=== PATIENT | female | born 2005 | race Caucasian/White ===

== ENCOUNTER 2024-05-11 08:29 | Outpatient (CLI) | payer BC, SELFPAY ==
--- NOTE | ~2024-05-11 | XR_ITS ---
XR elbow LT 2V 05/11/2024 08:43 Indication: Follow-up left radial fracture Procedure: 2 views left elbow Comparison: 04/24/2024 Findings: Stable alignment of healing radial fracture at the junction of the radial head and neck. Sm all joint effusion. No foreign bodies. Impression: 1: Stable alignment of healing proximal radial fracture. Reviewed, dictated and finalized at location B. PMENT STERILIZER Impression: 1: Stable alignment of healing proximal radial fracture.
--- OUTSIDE RECORDS SUMMARY | 2024-05-11 08:40 | XMS_ITS ---
Author Organization [facility] [place] Address [address] [place] [address] Care Team Providers Care Cafeteria Aide Name Role Phone Unavailable Unavailable Unavailable Surgery Details Not on file Complications Check Surgery Details section. Procedure Estimated Blood Loss Check Surgery Details section. Procedure Findings Check Surgery Details section. Procedure Specimens Taken Check Surgery Details section.
--- OUTSIDE RECORDS SUMMARY | 2024-05-11 08:40 | XMS_ITS | CCD ---
Author Organization [facility] [place] [address] [place] [address] Care Team Providers Care Mobile Architect Name Role Phone Unavailable Primary Care Provider Unavailabl e Social History Tobacco Use Types Packs/Day Years Used Date Smoking Tobacco: Never Assessed Comments Unknown Sex and Gender Information Value Date Recorded Sex Assigned at Not on file Legal Sex Female 1:22 AM PST Gender Identity Not on file Sexual Orientation Not on file Plan of Treatment Not on file
--- OUTSIDE RECORDS SUMMARY | 2024-05-11 08:40 | XMS_ITS | Referral Summary ---
Author Organization [facility] [place] Address [address] [place] [address] Care Team Providers Care Rockboard Lather Name Role Phone Unavailable Primary Care Provider [...]
--- OUTSIDE RECORDS SUMMARY | 2024-05-11 08:40 | XMS_ITS | Patient Health Summary ---
Author Organization [facility] Address [address] [place] [address] Care Team Providers Care Lpta Name Role Phone Jaci Real MD Primary Care Provider [phone] Note from [facility],non-owned Affiliates and Associated Physician Practices is amultiple site organization consisting of ambulatory clinics and hospital sitesin [place], [place], [place] and [place]. This disclosure is being madepursuant to the Care Everywhere program and may not contain all information available regarding this patient. Last updated 17.[facility] Allergies No known active allergies* Wilson(Itching) -Low Criticality,Inactive Medications * Be aware that medications may not be up to date on this document. Alwaysverify current medications with the patient. * omeprazole (PriLOSEC) 20 MG capsule Take 1 (one) capsule by mouth daily before breakfast * norgestimate-ethinyl estradiol (Marisol) 0.25-35 MG-MCG tablet(Started 02/17/2024) Take 1 (one) tablet by mouth once daily 4 refills by 02/16/2025 Active Problems Problem Noted Date Diagnosed Date Macromastia 08/20/2023 Need for vaccination 10/11/2020 Immunizations * Human Papilloma Virus Ninevalent Vaccine(Given 01/30/2021, 10/11/2020, 07/17/2020) Social History Tobacco Use Types Packs/Day Years Used Date Smoking Tobacco: Never Passive Smoke Exposure: Never Smokeless Tobacco: Never Tobacco Cessation:Counseling Given: Not Answered Alcohol Use Standard Drinks/Week Comments No 0 (1 standard drink = 0.6 oz pur e alcohol) AUDIT-C Answer Date Recorded Q1: How often do you have a drink containing alcohol? Patient declined 08/13/2023 Q2: How many drinks containi ng alcohol do you have on a typical day when you are drinking? Patient does not drink Q3: How often do you have si x or more drinks on one occasion? Patient declined 08/13/2023 PHQ-2 Answer Date Recorded Patient Health Questionnaire-2 Score 0 02/17/2024 Sex and Gender Information Value Date Recorded Sex Assigned at Not on file Gender Identity Not on file Sexual Orientation Not on file Last Filed Vital Signs Vital Sign Reading Time Taken Comments Blood Pressure 124/80 02/17/2024 1:48 PM [employer] Pulse 89 08/16/2023 12:22 PM CDT Temperature 36.7 ??C (98.1 ??F) 08/16/2023 12:22 PM C DT Respiratory Rate 18 08/16/2023 12:22 PM CDT Oxygen Saturation 98% 08/16/2023 12:22 PM CDT Inhaled Oxygen Concentration 100% 08/13/2023 3 :56 PM CDT Weight 87.6 kg (193 lb 1.6 oz) 02/17/2024 1:48 P M [employer] Height 154.9 cm (5' 1 ) 02/17/2024 1:48 PM [employer] Body Mass Index 36.49 02/17/2024 1:48 PM [employer] Procedures * PATHOLOGY TISSUE EXAM (STL)(Performed 08/13/2023) Performed for Macromastia * ENDOTRACHEAL TUBE NOTE(Performed 08/13/2023) * [place] BREAST REDUCTION(Performed 08/13/2023) Performed for Macromastia * HCG URINE QUALITATIVE - POCT (IP) INTERFACED(Performed 08/13/2023) * HCG URINE QUAL POCT NOTIFICATION(Performed 08/13/2023) Performed for Pre-op testing * CBC W AUTO DIFFERENTIAL(Performed 08/01/2023) Performed for Pre-op exam * CT ABDOMEN PELVIS W CONTRAST(Performed 01/25/2021) Performed for Lower abdominal pain * US PELVIS W DOPPLER OVARIES(Performed 01/25/2021) Performed for Lower abdominal pain * XR ABD OBSTRUCTION SERIES 2VW(Performed 01/25/2021) Performed for Lower abdominal pain * LIPASE BLOOD(Performed 01/25/2021) * COMPREHENSIVE METABOLIC PANEL(Performed 01/25/2021) * CBC W AUTO DIFFERENTIAL(Performed 01/25/2021) * HCG URINE QUALITATIVE - POCT (IP) INTERFACED(Performed 01/25/2021) * URINALYSIS W/MICROSCOPIC NO CULTURE(Performed 01/25/2021) * CULTURE URINE(Performed 01/25/2021) * HCG URINE QUAL POCT NOTIFICATION(Performed 01/25/2021) * TESTOSTERONE FREE+TOTAL PANEL(Performed 07/17/2020) Performed for Irregular periods * ESTRADIOL(Performed 07/17/2020) Performed for Irregular periods * FSH(Performed 07/17/2020) Performed for Irregular periods * PROLACTIN(Performed 07/17/2020) Performed for Irregular periods * TSH REFLEX FREE T4(Performed 07/17/2020) Performed for Irregular periods * XR ANKLE LEFT 3VW OR MORE(Performed 07/31/2014) Performed for Injury, other and unspecified, knee, leg, ankle, and foot * XR TIBIA FIBULA LEFT 2VW(Performed 07/31/2014) Performed for Injury, other and unspecified, knee, leg, ankle, and foot Results * PATHOLOGY TISSUE EXAM (STL) (08/13/2023 12:21 PM CDT) Case Report Surgical Pathology Report ? Case: [id number] ? Authorizing Provider: ??Sandra Harman MD Collected: ? 08/13/2023 12:21 PM ? Ordering Location: ? [facility] ?Received: ?08/14/2023 08:34 AM ? [facility] - [facility] ? Pathologist: ? Cedric Ding MD ? Specimens: ?? A) - Breast Reduction, right breast reduction ? B) - Breast Reduction, left breast reduction ? 08/19/2023 10:38 AM [facility] Final Diagnosis A. Breast, right, reduction: - Benign skin and breast tissue in macromastia,922 g. B. Breast, left, reduction: - Benign skin and breast tissue in macromastia, 985 g. 08/19/2023 10:38 AM [facility] Clinical History Macromastia in a 17-year-old female 08/19/2023 10:38 AM [facility] Gross Description Two specimens are received in formalin for gross and microscopic examination labeled Irena Hamilton . Specimen A, additionally labeled ? right breast reduction contains multiple fragments of yellow fibrofatty breast tissue, some with white skin with an aggregate measurement of 17.3 x 11.5 x 10.3 cm and weighing 1120 g. The skin portion of the specimen measures 16.8 x 9.0 cm in aggregate. Serial sectioning reveals primarily yellow fibrofatty breast tissue without masses lesions., media sales representative sections are submitted in A1-A3. Specimen B, additionally labeled ? left breast reduction contains multiple fragments of yellow fibrofatty breast tissue, some with white skin attached with an aggregate measurement of 19.0 x 14.2 x 12.3 cm and weighing 1550 g. The skin portion of the specimen measures 19.6 x 11.5 cm in aggregate. Serial sectioning reveals yellow fibrofatty breast tissue without masses or lesions. Claims Investigator sections are submitted in B1-B3. 08/19/2023 10:38 AM [facility] Grossed By Juan Durham 08/05 10:38 AM [facility] Microscopic Description 6 H&E Sections of both specimens show similar histologic features: unremarkable breast tissue and hair-bearing skin overlying unremarkable mammary tissue. 08/19/2023 10:38 AM [facility] Pathologist Location at [facility] 08/19/2023 10:38 AM [facility] Disclaimer The performance characteristics of all immunohistochemical and indirect immunofluorescence stains (if any) cited in this report were determined by the Histopathology Laboratory of [facility] in compliance with Clinical Laboratory Improvement Amendments of 1988 (CLIA'88) regulations. Some of these tests rely on the use of analyte-specific reagents and are subject to specific labeling requirements by the U.S. Food and Drug Administration (FDA). Such tests were developed by the [facility] Laboratory of [facility] and have not been cleared or approved by the FDA. The FDA has determined that such clearance or approval is not necessary. These tests are used for clinical purposes and should not be regarded as investigational or for research. This case has been personally reviewed and interpreted by the attending (teaching) pathologist. 08/19/2023 10:38 AM [facility] Embedded Images 08/19/2023 10:38 AM [facility] Pathology/Cytology SPECIMEN FROM BREAST OBTAINED BY EXCISION / Unknown 08/13/2023 12:21 PM CDT 08/14/2023 8:34 AM CDT Comment:Pre-op diagnosis: Macromastia [N62] Miscellaneous samples (specimen) SPECIMEN FROM BREAST OBTAINED BY EXCISION / Unknown 08/13/2023 12:22 PM CDT 08/14/2023 8:34 AM CDT Comment:Pre-op diagnosis: Macromastia [N62] Sandra Harman MD LAB - PATHOLOGY /CYTOLOGY ORDERABLES [facility] [place] [address] * ETT LINE PERFORMABLE (08/13/2023 11:49 AM CDT) Narrative Chikis Hester APRN-CRNA - 08/13/2023 11:49 AM CDT Chikis Hester APRN-CRNA ? 08/13/2023 11:50 AM Endotracheal Tube Placement: ? Patient Location: OR. Intubation Event Date/Time: ??08/13/2023 11:41 AM Procedure: intubation (61113). Procedure Section: ?? Sedation: under general anesthesia. Indications for Airway Management: ??anesthesia Induction: standard IV Patient Position: ??sniffing Mask Ventilation: easy. Blade Type: Lyle Blade Size: 3 Laryngoscopy View: grade 1 (full cords) Tube: endotracheal tube Placement: oral Tube type: cuff - inflated Tube Size (MM): 6.5 Depth of Insertion (CM): 20 Measured From: teeth Cuff inflation pressure (CM H20): ??20 Cuff Inflated With: air Number of Attempts: 1. Placement Verified By: direct visualization, bilateral breath sounds and CO2 monitor Tube secured with: ??adhesive tape. Dentition unchanged? ??Yes Difficult Airway? ??No. Procedure Start Time: 08/13/2023 11:41 AM. Staff Section ? Anesthesia Provider: Kristin Coffey, Performed the procedure ? Provider #1: Kim Orozco MD. ? Provider #2: Giselle De Santiago APRN-CRNA. Kim Orozco MD GENERAL ANESTHESIA ORDERABLES * HCG URINE QUALITATIVE - POCT (IP) INTERFACED (08/13/2023 10:23 AM CDT) Only the most recent of2 resultswithin the time period is included. HCG Qual Urine Negative Negative 08/13/2023 4:48 PM CDT [facility] Urine URINE / Unknown 08/13/2023 1 0:23 AM CDT 08/13/2023 4:48 PM CDT Sandra Harman MD LAB - POINT OF CARE ORDERABLES Performing Organization Address [facility] Co de Phone Number [facility] [address] [place] [phone] * HCG URINE QUAL POCT NOTIFICATION (08/13/2023 9:58 AM CDT) Only the most recent of2 resultswithin the time period is included. Pathologist [facility] Comment Notification Label Only - See Separate Report 08/13/2023 11:02 AM CDT [facility] Urine URINE / Unknown 08/13/2023 9 :58 AM CDT 08/13/2023 9:58 AM CDT Sandra Harman MD LAB - URINALYSI S ORDERABLES Performing Organization Address [facility] de Phone Number [facility] [address] [place] [phone] * (ABNORMAL) CBC W DIFFERENTIAL (08/01/2023 3:23 PM CDT) Only the most recent of2 resultswithin the time period is included. WBC 11.6(H) 4.0 - 10.7 x10E9/L 08/01/2023 4:16 PM CDT [facility] RBC Count 4.70 3.90 - 5.20 x10E12/L 08/01/2023 4:16 PM T [facility] Hemoglobin 11.3(L) 11.9 - 15.8 g/dL 08/01/2023 4:16 PM T [facility] Hematocrit 36.8 34.8 - 46.1 % 08/01/2023 4:16 PM [facility] MCV 78.3(L) 80.0 - 98.0 fL 08/01/2023 4:16 PM [facility] MCH 24.0(L) 26.7 - 33.6 pg 08/01/2023 4:16 PM [facility] MCHC 30.7(L) 31.7 - 36.3 g/dL 08/01/2023 4:16 PM [facility] RDW-CV 16.9(H) 11.3 - 14.8 % 08/01/2023 4:16 PM [facility] Platelet Count 382 150 - 420 x10E9/L 08/01/2023 4:16 PM [facility] MPV 12.2(H) 7.8 - 11.4 fL 08/01/2023 4:16 PM [facility] Neutrophil % 69.0 41.0 - 74.0 % 08/01/2023 4:16 PM [facility] Lymphocyte % 23.9 17.0 - 47.0 % 08/01/2023 4:16 PM [facility] Monocyte % 4.6 3.0 - 11.0 % 08/01/2023 4:16 PM [facility] Eosinophil % 1.0 0.0 - 7.0 % 08/01/2023 4:16 PM [facility] Basophil % 0.7 0.0 - 1.6 % 08/01/2023 4:16 PM [facility] Immature Granulocytes % 0.8 0.0 - 1.0 % 08/01/2023 4:16 PM [facility] Neutrophil Absolute 7.99(H) 1.60 - 7.50 x10E9/L 08/01/2023 4:16 PM [facility] Lymphocyte Absolute 2.76 1.00 - 4.40 x10E9/L 08/01/2023 4:16 PM [facility] Monocyte Absolute 0.53 0.15 - 1.00 x10E9/L 08/01/2023 4:16 PM [facility] Eosinophil Absolute 0.12 0.00 - 0.60 x10E9/L 08/01/2023 4:16 PM CDT [facility] Basophil Absolute 0.08 0.00 - 0.13 x10E9/L 08/01/2023 4:16 PM CDT [facility] Blood BLOOD SPECIMEN / Unknown Lab Venipuncture / Unknown 08/01/2023 3:23 PM CDT 08/01/2023 4:11 PM CDT Sandra Harman MD LAB - HEMATOLOG Y ORDERABLES [facility] [address] [place] [address], [facility] [phone] * CT ABDOMEN AND PELVIS WITH IV CONTRAST (01/25/2021 3:12 PM CDT) Anatomical Region Laterality Modality Abdomen, Pelvis Computed Tomogra phy 01/25/2021 3:26 PM CDT Impressions 01/25/2021 3:30 PM CDT No acute process in the abdomen or pelvis. Normal appendix. *Reading Radiologist: Kali Gibson on 01/25/2021 at 3:30 PM Narrative 01/25/2021 3:30 PM CDT INDICATION: Lower abdominal pain. Concern for appendicitis. COMPARISON: None available. TECHNIQUE: CT of the abdomen and pelvis with 95 mL of Isovue-300 intravenous contrast. Coronal and sagittal reformatted images were submitted. DOSE: CTDI: 20.18 mGy, DLP: 1064.17 mGy-cm The reported CTDIvol (mGy) and DLP (mGy-cm) values are generated from scan acquisition factors based on 32 cm (body) or 16 cm (head) phantoms and may underestimate or overestimate the actual patient dose based on patient size and other factors. FINDINGS: Chest: The lung bases are clear. Hepatobiliary: Normal liver size and attenuation. No gallbladder calculus, gallbladder wall thickening or biliary dilation. Pancreas: Normal without peripancreatic fluid collection. Spleen: Normal attenuation without mass. Adrenal glands: Normal in morphology without mass lesion. : Normal appearance of the kidneys with symmetric parenchymal enhancement. No bladder or deep pelvic soft tissue abnormality is seen. Left ovarian/adnexal cyst measuring up to 3.6 cm. GI: No obstruction or abnormal bowel wall thickening. Vascular: The aorta and inferior vena cava are normal. Other: No free air or abnormal fluid collection. Small amount of free fluid within the pelvis, likely reactive. Bones: The bones are normal. Procedure Note Kali Gibson, DO - 01/25/2021 INDICATION: Lower abdominal pain. Concern for appendicitis. COMPARISON: None available. TECHNIQUE: CT of the abdomen and pelvis with 95 mL of Isovue-300 intravenous contrast. Coronal and sagittal reformatted images were submitted. DOSE: CTDI: 20.18 mGy, DLP: 1064.17 mGy-cm The reported CTDIvol (mGy) and DLP (mGy-cm) values are generated from scan acquisition factors based on 32 cm (body) or 16 cm (head) phantoms and may underestimate or overestimate the actual patient dose based on patient size and other factors. FINDINGS: Chest: The lung bases are clear. Hepatobiliary: Normal liver size and attenuation. No gallbladder calculus, gallbladder wall thickening or biliary dilation. Pancreas: Normal without peripancreatic fluid collection. Spleen: Normal attenuation without mass. Adrenal glands: Normal in morphology without mass lesion. : Normal appearance of the kidneys with symmetric parenchymal enhancement. No bladder or deep pelvic soft tissue abnormality is seen. Left ovarian/adnexal cyst measuring up to 3.6 cm. GI: No obstruction or abnormal bowel wall thickening. Vascular: The aorta and inferior vena cava are normal. Other: No free air or abnormal fluid collection. Small amount of free fluid within the pelvis, likely reactive. Bones: The bones are normal. IMPRESSION No acute process in the abdomen or pelvis. Normal appendix. *Reading Radiologist: Kali Gibson on 01/25/2021 at 3:30 PM [address]inthia Tomlinson MD CT ORDERABLES * US PELVIS W DOPPLER OVARIES (01/25/2021 12:40 PM CDT) Anatomical Region Laterality Modality Pelvis Ultrasound 01/25/2021 1:03 PM CDT Impressions 01/25/2021 1:06 PM CDT 1. ??Normal pelvis ultrasound. 2. ??Normal spectral Doppler interrogation of the ovaries. *Reading Radiologist: Kali Gibson on 01/25/2021 at 1:06 PM Narrative 01/25/2021 1:06 PM CDT INDICATION: Lower abdominal pain for several days. COMPARISON: None available. TECHNIQUE: Transabdominal ultrasound of the pelvis with complete color and spectral Doppler evaluation of the ovaries. FINDINGS: Uterus: 6.1 x 2.2 x 3.8 cm Endometrium: 5 mm. The uterus has normal appearance for patient age. The myometrium is homogenous and normal. There is no pathological endometrial thickening or abnormal fluid. Right Ovary: 3.4 x 1.8 x 1.3 cm. Volume 4.2 mL The right ovary is normal in appearance. Left Ovary: 3.2 x 2.4 x 2.4 cm. Volume 9.6 mL The left ovary is normal in appearance. Doppler: Spectral Doppler waveforms demonstrate arterial and venous flow to both ovaries.. ??Normal color flow is demonstrated to both ovaries. Other: There is no abnormal free fluid or adnexal mass. Procedure Note Kali Gibson, DO - 01/25/2021 INDICATION: Lower abdominal pain for several days. COMPARISON: None available. TECHNIQUE: Transabdominal ultrasound of the pelvis with complete color and spectral Doppler evaluation of the ovaries. FINDINGS: Uterus: 6.1 x 2.2 x 3.8 cm Endometrium: 5 mm. The uterus has normal appearance for patient age. The myometrium is homogenous and normal. There is no pathological endometrial thickening or abnormal fluid. Right Ovary: 3.4 x 1.8 x 1.3 cm. Volume 4.2 mL The right ovary is normal in appearance. Left Ovary: 3.2 x 2.4 x 2.4 cm. Volume 9.6 mL The left ovary is normal in appearance. Doppler: Spectral Doppler waveforms demonstrate arterial and venous flow to both ovaries.. Normal color flow is demonstrated to both ovaries. Other: There is no abnormal free fluid or adnexal mass. IMPRESSION 1. Normal pelvis ultrasound. 2. Normal spectral Doppler interrogation of the ovaries. *Reading Radiologist: Kali Gibson on 01/25/2021 at 1:06 PM Cinthia Tomlinson MD US ORDERABLES * XR ABD OBSTRUCTION SERIES 2VW (01/25/2021 11:04 AM CDT) Anatomical Region Laterality Modality Abdomen Radiographic Lesvia ging 01/25/2021 11:0 8 AM CDT Impressions 01/25/2021 11:58 AM CDT Abnormal bowel gas pattern with small bowel ileus in the left upper abdomen. Consider etiologies to include pancreatitis and other intra-abdominal pathologies. Dictated by Jose Guadalupe Muniz on 01/25/2021 11:45 AM Stanislaw Ivy, have personally reviewed the images and I agree with this report. *Reading Radiologist: Stanislaw Ames on 01/25/2021 at 11:58 AM Narrative 01/25/2021 11:58 AM CDT INDICATION: Bilateral abdominal pain. No fever, emesis, diarrhea. Last bowel movement 01/24/2021 COMPARISON: None available. TECHNIQUE: Upright and supine frontal radiographs FINDINGS: Moderate colonic stool load is present. On the supine films, there is stacking of the small bowel without significant bowel wall thickening. Gas can be seen in the rectum. No pneumatosis or free air. No abnormal calcifications are seen. No bone abnormality is seen. The lower chest is normal. Procedure Note Stanislaw Ames MD - 01/25/2021 INDICATION: Bilateral abdominal pain. No fever, emesis, diarrhea. Last bowel movement 01/24/2021 COMPARISON: None available. TECHNIQUE: Upright and supine frontal radiographs FINDINGS: Moderate colonic stool load is present. On the supine films, there is stacking of the small bowel without significant bowel wall thickening. Gas can be seen in the rectum. No pneumatosis or free air. No abnormal calcifications are seen. No bone abnormality is seen. The lower chest is normal. IMPRESSION Abnormal bowel gas pattern with small bowel ileus in the left upper abdomen. Consider etiologies to include pancreatitis and other intra-abdominal pathologies. Dictated by Jose Guadalupe Muniz on 01/25/2021 11:45 AM IStanislaw, have personally reviewed the images and I agree with this report. *Reading Radiologist: Stanislaw Ames on 01/25/2021 at 11:58 AM Cinthia Tomlinson MD DIAGNOSTIC IMAG ING ORDERABLES * (ABNORMAL) COMPREHENSIVE METABOLIC PANEL (01/25/2021 9:09 AM CDT) BUN 7 5 - 19 mg/dL 01/25/2021 9:48 AM [facility] Creatinine 0.66 0.56 - 0.96 mg/dL 01/25/2021 9:48 AM [facility] Sodium 141 136 - 145 mmol/L 01/25/2021 9:48 AM [facility] Potassium 4.1 3.5 - 5.1 mmol/L 01/25/2021 9:48 AM [facility] Chloride 108(H) 98 - 107 mmol/L 01/25/2021 9:48 AM [facility] CO2 21 20 - 28 mmol/L 01/25/2021 9:48 AM [facility] Glucose 90 70 - 115 mg/dL 01/25/2021 9:48 AM [facility] Calcium 9.0 8.4 - 10.2 mg/dL 01/25/2021 9:48 AM [facility] Protein Total 7.2 6.0 - 8.3 g/dL 01/25/2021 9:48 AM [facility] Albumin 3.8 3.4 - 5.0 g/dL 01/25/2021 9:48 AM [facility] Bilirubin Total 0.2(L) 0.3 - 1.2 mg/dL 01/25/2021 9:48 AM [facility] Alkaline Phosphatase 96(L) 100 - 390 U/L 01/25/2021 9:48 AM [facility] ALT 18 5 - 55 U/L 01/25/2021 9:48 AM [facility] AST 19 3 - 35 U/L 01/25/2021 9:48 AM [facility] Anion Gap 16 8 - 18 01/25/2021 9:48 AM [facility] BUN/Creatinine Ratio 11 7 - 23 01/25/2021 9:48 AM [facility] Osmolality Calculated 290 270 - 300 mOsm/kg 01/25/2021 9:48 AM [facility] Blood BLOOD SPECIMEN / Unknown Venipuncture / Unknown 01/25/2021 9:09 AM T 01/25/2021 9:24 AM CDT Cinthia Tomlinson MD LAB - CHEMISTRY ORDERABLES [address] [address], [facility] [phone] * LIPASE BLOOD (01/25/2021 9:09 AM CDT) Lipase 15 8 - 78 U/L 01/25/2021 3:22 PM CDT [facility] Blood BLOOD SPECIMEN / Unknown 01/25/2021 9:09 AM CDT 01/25/2021 3:09 PM CDT Cinthia Tomlinson MD LAB - CHEMISTRY ORDERABLES Performing Organization Address City/[facility]/ZIP Co de Phone Number [address] [address], [place] [phone] * URINALYSIS W/MICROSCOPIC NO CULTURE (01/25/2021 8:48 AM CDT) Color UA Straw Straw, Yellow 01/25/2021 9:48 AM CDT [facility] Clarity UA Clear Clear 01/25/2021 9:48 AM T [facility] Specific Mio UA 1.010 1.005 - 1.030 01/25/2021 9:48 AM [facility] pH UA 6.0 5.0 - 8.0 pH 01/25/2021 9:48 AM [facility] Protein UA Negative Negative 01/25/2021 9:48 AM [facility] Glucose UA Negative Negative 01/25/2021 9:48 AM [facility] Ketone UA Negative Negative 01/25/2021 9:48 AM [facility] Bilirubin UA Negative Negative 01/25/2021 9:48 AM [facility] Blood UA Negative Negative 01/25/2021 9:48 AM [facility] Nitrite UA Negative Negative 01/25/2021 9:48 AM [facility] Leukocyte Esterase Negative Negative 01/25/2021 9:48 AM T [facility] Urobilinogen UA Negative Negative mg/dL 01/25/2021 9:48 AM CDT [facility] RBC UA 0-2 None Seen, 0-2, 3-5 /HPF 01/25/2021 9:48 AM CDT [facility] WBC UA 0-5 None Seen, 0-5 /HPF 01/25/2021 9:48 AM CDT [facility] Squamous Epithelial Cells UA 0-2 None Seen, 0-2, 3-5 /HPF 01/25/2021 9:48 AM CDT [facility] Mucus UA 1+ /LPF 01/25/2021 9:48 AM CDT [facility] Urine URINE SPECIMEN OBTAINED BY CLEAN CATCH PROCEDURE / Unknown Collection / Unknown 01/25/2021 8:48 AM CDT 01/25/2021 9:02 AM CDT Narrative [facility] - 01/25/2021 9:48 AM CDT Cinthia Tomlinson MD LAB - URINALYSI S ORDERABLES [facility] [address] [place] [phone], [facility] [phone] * CULTURE URINE (01/25/2021 8:48 AM CDT) Culture Urine <10,000 CFU/mL urogenital eliane JIM 01/26/2021 3:30 PM CDT [facility] MICROBIOLOGY Urine URINE SPECIMEN OBTAINED BY CLEAN CATCH PROCEDURE / Unknown Collection / Unknown 01/25/2021 8:48 AM CDT 01/25/2021 9:02 AM CDT Cinthia Tomlinson MD LAB - MICROBIOL OGY ORDERABLES [facility] MICROBIOLOGY [address] [place] [address], [facility] [phone] * TSH REFLEX FREE T4 (07/17/2020 11:08 AM CDT) TSH 1.253 0.350 - 4.940 uIU/mL [facility] INSURANCE BILL Blood BLOOD SPECIMEN / Unknown 07/17/2020 11:08 AM CDT 07/17/2020 Narrative Resulting Agency Comment Lab Testing performed at: [address] ??[facility] [phone] Anum Sibley MD LAB - CHEMISTRY DENISE PAN [facility] INSURANCE BILL [address] [place] [address] * TESTOSTERONE FREE+TOTAL PANEL (07/17/2020 11:08 AM CDT) Testosterone Total LC-MS 66.7 ng/dL [facility] INSURANCE BILL Comment: ?Lenard Stage ? Age (years) ? Female ? 1 ? <9.2 ? <2.5 - 10.0 ? 2 ? 9.2 - 13.7 ?7.0 - 28.0 ? 3 ?10.0 - 14.4 ? 15.0 - 35.0 ? 4 ?10.7 - 15.6 ? 13.0 - 32.0 ? 5 ?11.8 - 18.6 ? 20.0 - 38.0 ?Adult Females ?= or >18 ? 10.0 - 55.0 Free Testosterone(Dire ct) 3.1 Not Estab. pg/mL [facility] INSURANCE BILL Blood BLOOD SPECIMEN / Unknown 07/17/2020 11:08 AM CDT 07/17/2020 Narrative [facility] INSURANCE BILL - 07/21/2020 9:06 PM CDT Test(s) 125500-[id number], Total, LC/MS was developed and its performance characteristics determined by [employer]. It has not been cleared or approved by the Food and Drug Administration. Resulting Agency Comment Lab Testing performed at: [address] ??[facility] [id number] Anum Sibley MD LAB - CHEMISTRY DENISE PAN Performing Organization Address [facility] de Phone Number [facility] INSURANCE BILL [address] [place] [address] * PROLACTIN (07/17/2020 11:08 AM CDT) Prolactin 6.52 5.18 - 26.53 ng/mL [facility] INSURANCE BILL Blood BLOOD SPECIMEN / Unknown 07/17/2020 11:08 AM CDT 07/17/2020 Narrative Resulting Agency Comment Lab Testing performed at: [address] ??[facility] [id number] Anum Sibley MD LAB - CHEMISTRY DENISE PAN Performing Organization Address [facility] Co de Phone Number [facility] INSURANCE BILL [address] [place] [address] * FSH (07/17/2020 11:08 AM CDT) FSH 5.76 mIU/mL [facility] INSURANCE BILL Comment: ? FSH Reference Range Normal Menstruating Females ? Follicular Phase ?3.03 - 8.08 mIU /mL ? Mid-Cycles Phase ? 2.55 - 16.69 mIU /mL ? Luteal Phase ?1.38 - 5.47 mIU /mL Post Menopausal Females ? 26.72 - 133.41 mIU /mL Males ?0.95 - 11.95 mIU/ mL Blood BLOOD SPECIMEN / Unknown 07/17/2020 11:08 AM CDT 07/17/2020 Narrative Resulting Agency Comment Lab Testing performed at: [address] ??[facility] [id number] Anum Sibley MD LAB - CHEMISTRY DENISE PAN [facility] INSURANCE BILL [address] [place] [address] * ESTRADIOL (07/17/2020 11:08 AM CDT) Estradiol 88.0 pg/mL [facility] INSURANCE BILL Comment: ? Adult Female: ? Follicular phase ?? 12.5 - ?? 166.0 ? Ovulation phase ?85.8 - ?? 498.0 ? Luteal phase ? 43.8 - ?? 211.0 ? Postmenopausal ? <6.0 - ?54.7 ? 1st trimester ? 215.0 - >4300.0 ? Girls (1-10 years) ?6.0 - ?27.0 Alberto ECLIA methodology Blood BLOOD SPECIMEN / Unknown 07/17/2020 11:08 AM CDT 07/17/2020 Narrative Resulting Agency Comment Lab Testing performed at: [address] ??[facility] [id number] Anum Sibley MD LAB - CHEMISTRY DENISE PAN [facility] INSURANCE BILL [address] [place] [address] * XR ANKLE 3+ VW LEFT (07/31/2014 9:14 PM CDT) Anatomical Region Laterality Modality Lower Extremity Radiographic Lesvia ging 08/01/2014 7:49 AM CDT Impressions 08/01/2014 7:50 AM CDT Normal. Narrative 08/01/2014 7:50 AM CDT Left ankle three views Left tibia and fibula AP and lateral History: Injury. The bones, soft tissues, and joint spaces are normal. Procedure Note Hailey Mooney MD - 08/01/2014 Left ankle three views Left tibia and fibula AP and lateral History: Injury. The bones, soft tissues, and joint spaces are normal. IMPRESSION Normal. Colt Donovan MD DIAGNOSTIC IMAGING ORDERABLES * XR TIBIA AND FIBULA 2 VW LEFT (07/31/2014 9:14 PM CDT) Anatomical Region Laterality Modality Lower Extremity Radiographic Lesvia ging 08/01/2014 7:49 AM CDT Impressions 08/01/2014 7:50 AM CDT Normal. Narrative 08/01/2014 7:50 AM CDT Left ankle three views Left tibia and fibula AP and lateral History: Injury. The bones, soft tissues, and joint spaces are normal. Procedure Note Hailey Mooney MD - 08/01/2014 Left ankle three views Left tibia and fibula AP and lateral History: Injury. The bones, soft tissues, and joint spaces are normal. IMPRESSION Normal. Colt Donovan MD DIAGNOSTIC IMAGING ORDERABLES Care Teams Lpta Relationship Specialty Start Date End Date Jaci Real MD [address] [place] [address] PCP - General Pediatrics 07/31/14
--- OUTSIDE RECORDS SUMMARY | 2024-05-11 08:40 | XMS_ITS | Clinical Summary ---
Author Organization [facility] Address [address] [place] [address] Care Team Providers Care Manager Rn Case Name Role Phone Jaci Real MD Primary Care Provider [phone] Source Comments [facility],non-owned Affiliates and Associated Physician Practices is amultiple site organization consisting of ambulatory clinics and hospital sitesin [place], [place], [place] and [place]. This disclosure is being madepursuant to the Care Everywhere program and may not contain all information available regarding this patient. Last updated 17.[facility] Allergies No known active allergies Medications * Be aware that medications may not be up to date on this document. Alwaysverify current medications with the patient. 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 Need for vaccination 10/11/2020 Encounters Date Type Department Care Team Description 02/17/2024 1:45 PM SET OFF PRESS OPERATOR Office Visit [facility] - [facility] [address] [place] [address], [address] [place] [address] Anum Sibley MD Well woman exam (Primary Dx); Oral contraceptive use 02/17/2024 Travel from Last 3 Months Immunizations Name Administration Dates Next Due Human Papilloma Virus Ninevalent Vaccine 021,10/11/2020,07/17/2020 Family History Medical History Relation Name Comments ADD/ADHD Brother 2 Anxiety Disorder Brother 2 Depression Brother 2 Diabetes - Type 2 Father Hyperlipidemia Father Hypertension Father Thyroid Disease Maternal Aunt CAD (Coronary Artery Disease) Maternal Grandfather CAD (Coronary Artery Disease) Maternal Grandmother Thyroid Disease Maternal Grandmother Anesthesia Reaction Mother Diabetes - Type 2 Mother Hyperlipidemia Mother Hypertension Mother Relation Name Status Comments Brother 1 Alive Brother 2 Alive Father Alive Maternal Aunt Maternal Grandfather Maternal Grandmother Mother Alive Sister Alive Social History Tobacco Use Types Packs/Day Years [...] Comments Blood Pressure 124/80 02/17/2024 1:48 PM SET OFF PRESS OPERATOR Pulse 89 08/16/2023 12:22 PM CDT Temperature 36.7 ??C (98.1 ??F) 08/16/2023 12:22 PM C DT Respiratory Rate 18 08/16/2023 12:22 PM CDT Oxygen Saturation 98% 08/16/2023 12:22 PM CDT Inhaled Oxygen Concentration 100% 08/13/2023 3 :56 PM CDT Weight 87.6 kg (193 lb 1.6 oz) 02/17/2024 1:48 P M SET OFF PRESS OPERATOR Height 154.9 cm (5' 1 ) 02/17/2024 1:48 PM SET OFF PRESS OPERATOR Body Mass Index 36.49 02/17/2024 1:48 PM SET OFF PRESS OPERATOR Plan of Treatment Health Maintenance Due Date Last Done Comments HIV SCREENING 12/04/2018 CHLAMYDIA/GONORRHEA SCREENING 2019 MENINGOCOCCAL (Group B) VACCINE (1 of 2 - Standard) 2019 HEPATITIS C SCREENING 11/30/2021 DTAP/TDAP/TD VACCINES (1 - Tdap) 12/04/2022 HEPATITIS B VACCINE (1 of 3 - 19+ 3-dose series) 12/04/2022 COVID-19 VACCINE (3 - 2023-2 5 season) 2023 04/16/2021, 03/26/2021 INFLUENZA VACCINE (#1) 2023 DEPRESSION SCREENING 04/07/2024 02/17/2024 ZOSTER VACCINE (1 of 2) 12/04/2053 HPV VACCINE Completed 01/30/2021, 10/11/2020, 07/17/2020 HIB VACCINE Aged Out No longer eligi ble based on patient's age to complete this topic MENINGOCOCCAL VACCINE Aged Out No iqra richa eligible based on patient's age to complete this topic PNEUMOCOCCAL VACCINE Aged Out No long er eligible based on patient's age to complete this topic Care Teams Manager Rn Case Relationship Specialty Start Date End Date Jaci Real MD [address] [place] [address] PCP - General Pediatrics 07/31/14
--- OUTSIDE RECORDS SUMMARY | 2024-05-11 08:40 | XMS_ITS | Clinical Summary ---
Author Organization [facility] [place] [address] [place] [address] Care Team Providers Care Tufting Creeler Name Role Phone Unavailable Primary Care Provider [...]
--- OUTSIDE RECORDS SUMMARY | 2024-05-11 08:41 | XMS_ITS | Encounter Summary ---
Author Organization [facility] Address [address] [place] [address] Care Team Providers Care Nuts And Bolts Assembler Name Role Phone Jaci Real MD Primary Care Provider [phone] Reason for Visit * Reason Onset Date Comments Pre Authorization 06/11/2023 Encounter Details Date Type Department Care Team (Late st Contact Info) Description 06/11/2023 Telephone [facility] - Centralized Scheduling [address] [place] [address] Jaci Real MD [address] [place] [address] Pre Authorization Social History Tobacco Use Types Packs/Day Years Used Date Smoking Tobacco: Never Smokeless Tobacco: Never Alcohol Use Standard Drinks/Week Comments No 0 (1 standard drink = 0.6 oz pur e alcohol) Sex and Gender Information Value Date Recorded Sex Assigned at Not on file Gender Identity Not on file Sexual Orientation Not on file documented as of this encounter Miscellaneous Notes * Telephone Encounter - Veronika Romero - 06/11/2023 3:46 PM CST Current Provider: EJ Reason for Call: Patient;s mother called into the scheduling line requesting to know if authorization has been submitted through insurance in order for the patient to have her breast reduction approved. Please advise Patient Call Back Number: [phone] NSIVE LINE COACH documented in this encounter Plan of Treatment Not on file documented as of this encounter Visit Diagnoses Not on filedocumented in this encounter Care Teams Nuts And Bolts Assembler Relationship Specialty Start Date End Date Jaci Real MD [address] [address] PCP - General Pediatrics 07/31/14 documented as of this encounter
--- OUTSIDE RECORDS SUMMARY | 2024-05-11 08:41 | XMS_ITS | Referral Summary ---
Author Organization [facility] Address [address] [facility] [place] [place] [address] Care Team Providers Care Dining Service Inspector Name Role Phone Jaci Real MD Primary Care Provider Source Comments [facility],non-owned Affiliates and Associated Physician Practices is amultiple site organization consisting of ambulatory clinics and hospital sitesin [place], [place], [place] and [place]. This disclosure is being madepursuant to the Care Everywhere program and may not contain all information available regarding this patient. 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 Need for vaccination 10/11/2020 Immunizations Name Administration Dates Next Due Human Papilloma Virus Ninevalent Vaccine 021,10/11/2020,07/17/2020 Social History Tobacco Use Types Packs/Day Years [...] Comments Blood Pressure 124/80 02/17/2024 1:48 PM SPECIAL NEEDS BABYSITTER Pulse 89 08/16/2023 12:22 PM CDT Temperature 36.7 ??C (98.1 ??F) 08/16/2023 12:22 PM C DT Respiratory Rate 18 08/16/2023 12:22 PM CDT Oxygen Saturation 98% 08/16/2023 12:22 PM CDT Inhaled Oxygen Concentration 100% 08/13/2023 3 :56 PM CDT Weight 87.6 kg (193 lb 1.6 oz) 02/17/2024 1:48 P M SPECIAL NEEDS BABYSITTER Height 154.9 cm (5' 1 ) 02/17/2024 1:48 PM SPECIAL NEEDS BABYSITTER Body Mass Index 36.49 02/17/2024 1:48 PM SPECIAL NEEDS BABYSITTER Functional Status Functional Status Response Date of Assess ment Is person deaf or have serious hearing difficult y? No 08/13/2023 Is person blind or have serious difficulty seein g? No 08/13/2023 Does person have serious dif ficulty walking/climbing stairs? No 08/13/2023 Does person have difficulty dressing/bathing? No 08/13/2023 Does person have difficulty doing errands alone? No 08/13/2023 Cognitive Status Response Date of Assessm ent Does person have difficulty concentrating/remembering/making decisions? No 08/13/2023 Plan of Treatment Not on file Care Teams Dining Service Inspector Relationship Specialty Start Date End Date Jaci Real MD [address] [place] [address] PCP - General Pediatrics 07/31/14
== END 2024-05-11 08:30 | disposition home or self-care (01) ==
PROVIDERS: PCP Pediatrics Adolescent Medicine; Visit Provider Orthopaedic Surgery
DX: S52.132D Displaced fracture of neck of left radius, subsequent encounter for closed fracture with routine healing (principal); X58.XXXD Exposure to other specified factors, subsequent encounter
CPT/HCPCS: 73070